=== PATIENT | female | born 1995 | race Caucasian/White ===

== ENCOUNTER 2017-01-08 20:47 | Emergency (ER) | payer OTHER, BC ==
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
== END 2017-01-08 21:10 | disposition disaster alternative care site (69) ==
LOC: GACC 20:47
PROC: 2W2LX4Z Dressing of Right Lower Extremity using Bandage (ICD-10-PCS; principal; 2017-01-08)
DX: T24.211A Burn of second degree of right thigh, initial encounter (principal); X19.XXXA Contact with other heat and hot substances, initial encounter; Y92.511 Restaurant or cafe as the place of occurrence of the external cause; Y99.0 Civilian activity done for income or pay; Z79.1 Long term (current) use of non-steroidal anti-inflammatories (NSAID)